=== PATIENT | male | born 1980 | race Caucasian/White ===

== ENCOUNTER 2019-03-26 07:07 | Day surgery (SDC) | payer BC ==
--- NOTE | 2019-03-21 13:27 | HP ---
PREOPERATIVE HISTORY AND PHYSICAL: DATE OF ADMISSION/SURGERY: 03/26/19 - OR EAST DATE OF OFFICE VISIT/ENCOUNTER: 03/21/19 ATTENDING SURGEON: Blanquita Mares MD * (DICTATED BY RIKKI YOON) PROCEDURE: Left wrist carpal tunnel release. HISTORY OF PRESENT ILLNESS: This is a 38-year-old male, who complains of pain, numbness and tingling in his left wrist/hand. Symptoms have been present for several years and have gotten worse progressively over time. Recently, the symptoms are very acute and most bothersome at night. 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 He has tried bracing; however, has not had much relief from his symptoms. He has recently undergone a right wrist carpal tunnel release and that has gone quite well. He is now interested in pursuing a left wrist carpal tunnel release. PAST MEDICAL HISTORY: Asthma. PAST SURGICAL HISTORY: 1. Appendectomy. 2. Right carpal tunnel release. MEDICATIONS: None. ALLERGIES: No known drug allergies. FAMILY MEDICAL HISTORY: Rheumatoid arthritis. 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 He denies tobacco use and recreational drug use. He drinks alcohol on a regular basis. REVIEW OF SYSTEMS: Negative for general, cephalic, cardiovascular, respiratory , GI, , other musculoskeletal, integumentary, endocrine, neurologic, and hematologic symptoms. Infectious Disease: Negative for history of MRSA, hepatitis C, HIV. PHYSICAL EXAMINATION GENERAL: A well-developed, well-nourished 38-year-old male, in no acute distress. VITAL SIGNS: Height 5 feet 11 inches, weight 155 pounds. Pulse rate 54, blood pressure 118/68. HEENT: Normocephalic, atraumatic. Pupils are equal, round, and reactive to light and accommodation. Extraocular movements are intact. Throat is clear. NECK: Supple. No palpable lymph nodes. PULMONARY: Lungs are clear to auscultation bilaterally. No wheezes, rales, or rhonchi. CARDIOVASCULAR: Regular rate and rhythm. S1, S2. No murmurs, rubs, or gallops. No edema. ABDOMEN: Positive bowel sounds. Soft, nontender. NEUROLOGICAL: Alert and oriented x3. Cranial nerves II through XII are intact. Sensation is intact to light touch. MUSCULOSKELETAL: On exam of his left hand, there is no thenar wasting and no weakness with thumb abduction. He has good flexion and extension of his fingers. He has a positive Tinel's sign at the median nerve. Good range of motion of his neck without pain. Sensation is intact to light touch throughout the hand. IMPRESSION: Left carpal tunnel syndrome. PLAN: The patient is scheduled to undergo a left wrist carpal tunnel release with Dr. Mares on 03/26/19. He will return to the office 10 days postop for followup and suture removal. A prescription for Ultracet was e-scribed to the patient's pharmacy for postoperative pain management. RIKKI YOON [id number]/[facility] #: [id number] MTDD
[~2019-03-26 07:07] MED LIST: Buffered Lidocaine 1% SYRIN* 1 ML/SYRINGE INTRADERM ONE; Famotidine IV* 10 MG/ML 2 ML (20 mg) IV ONE; Famotidine IV* 10 MG/ML 2 ML (20 mg) ONE; Lactated Ringers 1000 ML Bag* 1,000 ML IV SCH; Lidocaine 1% INJ* 10 MG/ML 30 ML SDV ONE
[2019-03-26] MEDS ORDERED: ceFAZolin 2 GM in NS PREMIX(*) 2 GM/100 ML BAG IVPB ONE (07:49)
[2019-03-26] MEDS ORDERED: Midazolam* 1 MG/ML 5 ML VIAL (5 MG) ONE (07:51)
[2019-03-26] MEDS ORDERED: Lidocaine 2% PF * 5 ML VIAL ONE (07:52)
[2019-03-26] MEDS ORDERED: Ketorolac INJ* 30 MG/ML 1 ML VIAL ONE (07:52)
[2019-03-26] MEDS ORDERED: Propofol* 10 MG/ML 20 ML BTL ONE (07:52)
[2019-03-26] MEDS ORDERED: Acetaminophen TAB* 325 MG PO PRN (08:03)
[2019-03-26 09:24] VITALS: BP 113/90
--- NOTE | 2019-03-26 09:33 | OP ---
CC: Dr. Mares* OPERATIVE REPORT: DATE OF OPERATION: 03/26/19 - ROSIE DATE OF : 76 SURGEON: Blanquita Mares MD. ACCOUNT SUPPORT SPECIALIST: RIKKI Valdes. ANESTHESIOLOGIST: Aiyana Ortiz MD ANESTHESIA: Local MAC. PRE-OP DIAGNOSIS: Left carpal tunnel syndrome. POST-OP DIAGNOSIS: Left carpal tunnel syndrome. OPERATIVE PROCEDURE: Left carpal tunnel release. ESTIMATED BLOOD LOSS: Zero. TOURNIQUET TIME: About 10 minutes. INDICATION FOR PROCEDURE: Yovany is a 38-year-old man with numbness and tingling in the median nerve distribution of his left hand. He presents for left carpal tunnel release. DESCRIPTION OF PROCEDURE: The patient was brought to the operating room and was given a sedation anesthetic and a local infiltration of 10 cc of 1% plain lidocaine in the palm of his left hand. The skin of the left hand and forearm was prepped and draped in the usual sterile fashion. The hand and forearm were exsanguinated and the tourniquet elevated to 250 mmHg. A longitudinal incision was made in the palm in line with the ring finger. We dissected through the subcutaneous tissue down to the transverse carpal ligament. The ligament was divided sharply with a knife and then more proximally with the scissors. The nerve was dissected free from the surrounding tissue, and there was an area of moderate compression in the mid portion of the ligament. The wound was irrigated and the skin edges were reapproximated with 4-0 nylon suture. The wound was dressed with Xeroform, 4x4, Webril, and an David wrap. The patient tolerated the procedure well and was brought to the recovery room in good condition. [id number]/[facility] #: [id number] [facility]
== END 2019-03-26 09:42 | disposition home or self-care (01) ==
LOC: OREAST 07:07
PROVIDERS: ATTEND Orthopaedic Surgery
DX: G56.02 Carpal tunnel syndrome, left upper limb (principal)
CPT/HCPCS: J0690; J1885; J2250; J2704